=== PATIENT | male | born 1980 | race Caucasian/White ===

== ENCOUNTER 2024-07-27 14:56 | Emergency (ER) | payer OTHER ==
[2024-07-27] MEDS ORDERED: ONDANSETRON 4 MG/2 ML VIAL ONE ×2 (15:30→16:58)
[2024-07-27] MEDS ORDERED: levoFLOXacin 750 MG TAB ONE (15:30)
[2024-07-27] MEDS ORDERED: VANCOMYCIN 1 GM/VIAL ONE (15:30)
[2024-07-27] MEDS ORDERED: NA CHLORIDE 0.9% 250 ML ONE (15:31)
[2024-07-27] MEDS ORDERED: MORPHINE 4 MG/ML SYR ONE (15:31)
[2024-07-27] MEDS ORDERED: NA CHLORIDE 0.9% 1,000 ML ONE (15:31)
[2024-07-27] MEDS ORDERED: TDAP (DIPHTH,PERTUSS(ACELL),TET VAC) 0.5 ML VIAL IMVAC ONE (15:31)
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
[2024-07-27 15:38] LABS: Absolute Eosinophils 0.1 K/uL (0-0.5); Absolute Lymphocytes (CBC) 2.5 K/uL (0.7-4.9); Absolute Monocytes 0.3 K/uL (0.1-1.3); Absolute Neutrophil 3.2 K/uL (1.8-8.0); Basophils % 0.3 % (0-1.3); Eosinophils % 2.4 % (0-4.4); Hematocrit 38.7 % (39.6-49.0); Hemoglobin 13.6 g/dL (13.6-17.9); Lymphocytes % 40.7 % (15.3-44.8); MCH 30.6 pg (27.0-35.0); MCHC 35.2 g/dL (32.0-36.0); MCV 86.9 fL (80-100); MPV 10.5 fL (7.6-11.3); Monocytes % 5.2 % (3.3-12.3); Neutrophils % 51.4 % (41.7-73.7); Nucleated Red Blood Cells % 0.1 % (0-0); Platelets 141 thou/uL (152-406); RBC Red Blood Cell Count 4.45 M/uL (4.33-5.43); Red Cell Distribution Width 13.8 % (12.1-15.2)
[2024-07-27] MEDS ORDERED: TOBRAMYCIN 0.3% 5ML OPTH DROPS OPTH SCH (15:45)
[2024-07-27 16:36] LABS: Albumin 3.9 g/dL (3.4-5.0); Albumin/Globulin Ratio 1.3 (1.1-1.8); Anion Gap 9.7 mEq/L (5.0-15.0); Bilirubin Total 0.8 mg/dL (0.2-1.0); Globulin 3.1 g/dL (2.3-3.5); Potassium 3.7 mEq/L (3.5-5.1)
[2024-07-27] MEDS ORDERED: HYDROMORPHONE HCL 1 MG/ML INJ ONE (16:58)
[2024-07-27 17:18] VITALS: TEMP 97
[2024-07-27 17:23] VITALS: BP 142/78; O2SAT 100
== END 2024-07-27 17:05 | disposition short-term general hospital (02) ==
LOC: ER 14:56
DX: H21.02 Hyphema, left eye (principal); S05.32XA Ocular laceration without prolapse or loss of intraocular tissue, left eye, initial encounter; H44.4 Hypotony of eye; H21.1X2 Other vascular disorders of iris and ciliary body, left eye
CPT/HCPCS: 85025; 36415; 80053; J3370; J1171; J2405 ×2; J7050; J7030; 96372; 99285

== ENCOUNTER 2024-09-19 07:32 | Emergency (ER) | payer OTHER ==
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
[2024-09-19 09:59] LABS: SARS-CoV-2 Antigen Rapid Res Negative (Negative)
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
[2024-09-19 11:39] VITALS: BP 143/91; TEMP 97.8; O2SAT 100
== END 2024-09-19 10:54 | disposition home or self-care (01) ==
LOC: ER 07:32
DX: R07.0 Pain in throat (principal); R11.10 Vomiting, unspecified; Z11.52 Encounter for screening for COVID-19
CPT/HCPCS: 36415; 87070; 87426; 99283